=== PATIENT | male | born 1985 | race Caucasian/White ===

== ENCOUNTER 2017-08-30 22:10 | Inpatient (IN) | payer SELFPAY ==
[~2017-08-30] VITALS: Ht 180.3 cm; Wt 97.3 kg
[2017-08-30] MEDS ORDERED: LORazepam 2 MG/ML VIAL IM ONE (22:15)
[2017-08-30] MEDS ORDERED: HALOPERIDOL LACTATE 5 MG/ML VIAL IM ONE (22:15)
[2017-08-30] MEDS ORDERED: DiphenhydrAMINE HCL 50 MG/ML VIAL IM ONE (22:15)
[2017-08-30] MEDS: ZIPRASIDONE MESYLATE 20 MG/VIAL IM ONE ×2 (23:00→23:30)
[2017-08-31] MEDS ORDERED: ZOLPIDEM TARTRATE 10 MG TABLET PO PRN
[2017-08-31 00:02] LABS: BASOPHILS % (AUTO) 0.4 % (0.0-2.0); EOSINOPHILS % (AUTO) 1.1 % (1.0-6.0); HEMATOCRIT 41.6 % (41-53); HEMOGLOBIN 14.4 g/dL (13.5-17.5); LYMPHOCYTES # (AUTO) 1.3 K/uL (1.0-4.8); LYMPHOCYTES % (AUTO) 13.7 % (22.0-44.0); MEAN CORPUSCULAR HEMOGLOBIN 31.8 pg (26.0-34.0); MEAN CORPUSCULAR HGB CONC 34.6 G/dL (31.0-37.0); MEAN CORPUSCULAR VOLUME 92 fL (80-100); MONOCYTES # (AUTO) 0.7 K/uL (0.1-1.0); NEUTROPHILS # (AUTO) 7.6 K/uL (1.8-7.7); NEUTROPHILS % (AUTO) 77.8 % (40.0-70.0); PLATELET COUNT (AUTO) 218 K/uL (150-450); RED BLOOD CELL COUNT(AUTO) 4.54 MIL/uL (4.50-5.90); RED CELL DISTRIBUTION WIDTH 14.2 % (11.5-14.5); WHITE BLOOD COUNT (AUTO) 9.7 K/uL (4.5-11.0)
[2017-08-31 00:10] LABS: ANION GAP 16 mmol/L (8-16); CALCIUM, TOTAL 8.6 mg/dL (8.8-10.5); CARBON DIOXIDE 20 mmol/L (22-29); CHLORIDE 102 mmol/L (98-107); CREATININE 1.05 mg/dL (0.60-1.30); GLOMERULAR FILTR. RATE CALC > 60 mL/min (>60); POTASSIUM 3.7 mmol/L (3.5-5.1); SODIUM SERUM 138 mmol/L (136-145); UREA NITROGEN, BLOOD 14 mg/dL (7-18)
[2017-08-31 00:16] LABS: ALANINE AMINOTRANSFERASE 37 U/L (12-78); ASPARTATE AMINOTRANSFERASE 31 U/L (15-37); BILIRUBIN,TOTAL 0.3 mg/dL (0.1-1.0); TOTAL PROTEIN, SERUM 6.9 g/dL (6.4-8.2)
[2017-08-31 03:26] VITALS: BP 117/64
[2017-08-31] MEDS ORDERED: INFLUENZA VIRUS VACCINE QVS 2017-18 (3YR+)/PF 60 MCG/0.5 ML SYRINGE IM ONE (03:45)
[2017-08-31 08:04] LABS: CHOL/HDL RATIO 2.8 (4.2-7.3)
[2017-08-31 09:10] VITALS: BP 108/61
[2017-08-31] MEDS: OLANZapine 5 MG RAPDIS TABLET PO PRN (09:22)
[2017-08-31 16:00] VITALS: BP 130/83
[2017-08-31] MEDS: RisperiDONE 1 MG TABLET PO SCH (20:12)
[2017-09-01 01:48] VITALS: BP 128/82
[2017-09-01 08:10] VITALS: BP 130/78
[2017-09-01] MEDS: OLANZapine 5 MG RAPDIS TABLET PO PRN ×2 (09:15→16:56)
[2017-09-01 16:00] VITALS: BP 138/77
[2017-09-01] MEDS: LORazepam 2 MG TABLET PO PRN (16:56)
[2017-09-01] MEDS: RisperiDONE 1 MG TABLET PO SCH (20:50)
[2017-09-02 02:42] VITALS: BP 132/78
[2017-09-02 08:23] VITALS: BP 121/61
[2017-09-02] MEDS: LORazepam 2 MG TABLET PO PRN ×2 (09:45→16:50)
[2017-09-02] MEDS: OLANZapine 5 MG RAPDIS TABLET PO PRN ×2 (09:46→16:50)
[2017-09-02 16:12] VITALS: BP 129/68
[2017-09-02] MEDS ORDERED: MELATONIN 3 MG TABLET PO PRN (18:45)
[2017-09-02] MEDS ORDERED: MELATONIN 3 MG TABLET PO SCH ×2 (21:00)
[2017-09-02] MEDS: RisperiDONE 1 MG TABLET PO SCH (21:09)
[2017-09-03 00:22] VITALS: BP 111/67
[2017-09-03] MEDS: OLANZapine 5 MG RAPDIS TABLET PO PRN (08:18)
[2017-09-03] MEDS: LORazepam 2 MG TABLET PO PRN (08:18)
[2017-09-03 09:43] VITALS: BP 122/75
[2017-09-03] MEDS: NICOTINE 21 MG/24 HOUR PATCH TD SCH (14:05)
[2017-09-03 16:32] VITALS: BP 118/74
[2017-09-03] MEDS: RisperiDONE 1 MG TABLET PO SCH (20:33)
[2017-09-03] MEDS ORDERED: MELATONIN 3 MG TABLET PO SCH (21:00)
[2017-09-04 05:15] VITALS: BP 120/70
[2017-09-04 08:10] VITALS: BP 142/73
[2017-09-04] MEDS ORDERED: ACETAMINOPHEN 325 MG TABLET PO PRN ×2 (08:15→13:30)
[2017-09-04] MEDS: LORazepam 2 MG TABLET PO PRN (08:29)
[2017-09-04] MEDS: NICOTINE 21 MG/24 HOUR PATCH TD SCH (08:29)
[2017-09-04 09:28] LABS: APPEARANCE,URINE CLEAR (CLEAR); GLUCOSE, URINE (UA) NEGATIVE (NEGATIVE); KETONES,URINE NEGATIVE (NEGATIVE); LEUKOCYTE ESTERASE ,URINE NEGATIVE (NEGATIVE); OCCULT BLOOD,URINE NEGATIVE (NEGATIVE); PH,URINE 6.5 (5.0-8.0); PROTEIN,URINE NEGATIVE (NEGATIVE)
[2017-09-04 09:33] LABS: ADD UA MICROSCOPIC NO
[2017-09-04] MEDS: OLANZapine 5 MG RAPDIS TABLET PO PRN (10:33)
[2017-09-04] MEDS ORDERED: LOPERAMIDE HCL 2 MG CAPSULE PO PRN (13:30)
[2017-09-04] MEDS ORDERED: HydrOXYzine PAMOATE 50 MG CAPSULE PO PRN (13:30)
[2017-09-04] MEDS ORDERED: MAGNESIUM HYDROXIDE SUSPENSION 30 ML UDCUP PO PRN (13:30)
[2017-09-04] MEDS ORDERED: PROMETHAZINE HCL 25 MG TABLET PO PRN (13:30)
[2017-09-04] MEDS ORDERED: TUBERCULIN, PURIFIED PROTEIN DERIVATIVE 5 TU/0.1 ML SYG ID ONE (13:30)
[2017-09-04] MEDS ORDERED: MAG HYDROX/AL HYDROX/SIMETH ES 30 ML SUSPENSION UDCUP PO PRN (13:30)
[2017-09-04] MEDS ORDERED: GuaiFENesin/D-METHORPHAN [SUGAR-FREE] 200-20MG/10 ML SYRUP UDCUP PO PRN (13:30)
[2017-09-04 16:00] VITALS: BP 130/73
[2017-09-04] MEDS ORDERED: MELA3TAB66 PO (16:42)
[2017-09-04] MEDS ORDERED: RISP1 PO (16:42)
[2017-09-04] MEDS ORDERED: THIAMINE HCL 100 MG TABLET PO SCH (17:00)
[2017-09-05] MEDS ORDERED: FOLIC ACID 1 MG TABLET PO SCH (09:00)
[2017-09-05] MEDS ORDERED: MULTIVITAMINS WITH MINERALS, THERAPEUTIC TABLET PO SCH (09:00)
== END 2017-09-04 21:37 | disposition home or self-care (01) | DRG 885 ==
LOC: EMS 22:11 → B3A 23:21
PROVIDERS: ADMIT Psychiatry & Neurology Psychiatry; ATTEND Psychiatry & Neurology Psychiatry
DX: F25.0 Schizoaffective disorder, bipolar type (principal); R45.851 Suicidal ideations; Z78.1 Physical restraint status; Y90.9 Presence of alcohol in blood, level not specified; I10 Essential (primary) hypertension; G47.00 Insomnia, unspecified; F10.10 Alcohol abuse, uncomplicated; R00.0 Tachycardia, unspecified; Z28.21 Immunization not carried out because of patient refusal; Z56.0 Unemployment, unspecified; Z91.19 Patient's noncompliance with other medical treatment and regimen; Z71.41 Alcohol abuse counseling and surveillance of alcoholic
CPT/HCPCS: 80307; 90471; 96372; 99291; G0480; J1200; J1630; J2060; J3486

== ENCOUNTER 2020-07-29 14:16 | Inpatient (IN) | payer OTHER ==
[~2020-07-29] VITALS: Ht 180.3 cm; Wt 128.3 kg
[~2020-07-29 14:16] MED LIST: MELA3TAB82 PO; RISP1TAB27 PO
[2020-07-29] MEDS ORDERED: SODIUM CHLORIDE 0.9% 1,000 ML IV ONE ×2 (16:15→18:00)
[2020-07-29 16:37] LABS: EOSINOPHILS % (AUTO) 1.8 % (1.0-6.0); HEMATOCRIT 41.7 % (41-53); HEMOGLOBIN 14.4 g/dL (13.5-17.5); LYMPHOCYTES # (AUTO) 1.9 K/uL (1.0-4.8); LYMPHOCYTES % (AUTO) 24.2 % (22.0-44.0); MEAN CORPUSCULAR HEMOGLOBIN 30.8 pg (26.0-34.0); MEAN CORPUSCULAR HGB CONC 34.6 G/dL (31.0-37.0); MEAN CORPUSCULAR VOLUME 89 fL (80-100); MONOCYTES # (AUTO) 0.6 K/uL (0.1-1.0); MONOCYTES % (AUTO) 7.3 % (2.0-9.0); NEUTROPHILS # (AUTO) 5.1 K/uL (1.8-7.7); NEUTROPHILS % (AUTO) 65.7 % (40.0-70.0); PLATELET COUNT (AUTO) 240 K/uL (150-450); RED BLOOD CELL COUNT(AUTO) 4.68 MIL/uL (4.50-5.90); RED CELL DISTRIBUTION WIDTH 14.3 % (11.5-14.5)
[2020-07-29 16:46] LABS: ANION GAP 13 mmol/L (8-16); CARBON DIOXIDE 23 mmol/L (22-29); CHLORIDE 105 mmol/L (98-107); CREATININE 1.14 mg/dL (0.60-1.30); GLOMERULAR FILTR. RATE CALC > 60 mL/min (>60); GLUCOSE,RANDOM 107 mg/dL (70-110); POTASSIUM 3.7 mmol/L (3.5-5.1); SODIUM SERUM 141 mmol/L (136-145); UREA NITROGEN, BLOOD 9 mg/dL (7-18)
[2020-07-29 16:52] LABS: ALANINE AMINOTRANSFERASE 45 U/L (12-78); ALBUMIN 3.9 g/dL (3.4-5.0); ALKALINE PHOSPHATASE 44 U/L (46-116); ASPARTATE AMINOTRANSFERASE 19 U/L (15-37); BILIRUBIN,TOTAL 0.2 mg/dL (0.1-1.0); TOTAL PROTEIN, SERUM 6.7 g/dL (6.4-8.2)
[2020-07-29 16:52] LABS: AMPHET/METH SCREEN,URINE NEGATIVE (NEGATIVE); BARBITURATE SCREEN, URINE NEGATIVE (NEGATIVE); BENZODIAZEPINES SCREEN,URINE NEGATIVE (NEGATIVE); CANNABINOID SCREEN,URINE NEGATIVE (NEGATIVE); COCAINE SCREEN,URINE NEGATIVE (NEGATIVE); METHADONE SCREEN, URINE NEGATIVE (NEGATIVE); OPIATE SCREEN,URINE NEGATIVE (NEGATIVE)
[2020-07-29 16:57] LABS: PHENCYCLIDINE SCREEN,URINE NEGATIVE (NEGATIVE)
[2020-07-29 16:58] LABS: ACETAMINOPHEN < 2 mcg/mL (10-30)
[2020-07-29 17:17] LABS: SALICYLATE 12.7 mg/dL (2.8-20.0)
[2020-07-29 17:37] LABS: COVID AG,FIA SOURCE NASOPHARYNGEAL
[2020-07-29 19:22] LABS: ANION GAP 8 mmol/L (8-16); CARBON DIOXIDE 25 mmol/L (22-29); CHLORIDE 111 mmol/L (98-107); CREATININE 0.97 mg/dL (0.60-1.30); GLOMERULAR FILTR. RATE CALC > 60 mL/min (>60); GLUCOSE,RANDOM 93 mg/dL (70-110); POTASSIUM 3.7 mmol/L (3.5-5.1); SODIUM SERUM 144 mmol/L (136-145); UREA NITROGEN, BLOOD 9 mg/dL (7-18)
[2020-07-29 19:39] LABS: SALICYLATE 16.2 mg/dL (2.8-20.0)
[2020-07-29] MEDS ORDERED: SODIUM CHLORIDE 0.45% 1,000 ML IV ONE (20:00)
[2020-07-29] MEDS ORDERED: ONDANSETRON HCL 4 MG/2 ML VIAL IVP PRN (20:00)
[2020-07-29] MEDS: PANTOPRAZOLE SODIUM 40 MG/VIAL IVP SCH (20:14)
[2020-07-29] MEDS: DOCUSATE SODIUM 100 MG CAPSULE PO SCH (21:00)
[2020-07-29 21:49] VITALS: BP 120/77
[2020-07-30 03:09] VITALS: BP 114/65
[2020-07-30 08:01] VITALS: BP 125/79
[2020-07-30] MEDS: PANTOPRAZOLE SODIUM 40 MG/VIAL IVP SCH (09:00)
[2020-07-30] MEDS: DOCUSATE SODIUM 100 MG CAPSULE PO SCH (09:00)
[2020-07-30 09:40] LABS: SALICYLATE 9.4 mg/dL (2.8-20.0)
[2020-07-30 09:42] LABS: ANION GAP 8 mmol/L (8-16); CALCIUM, TOTAL 8.6 mg/dL (8.8-10.5); CARBON DIOXIDE 26 mmol/L (22-29); CHLORIDE 106 mmol/L (98-107); CREATININE 0.93 mg/dL (0.60-1.30); GLOMERULAR FILTR. RATE CALC > 60 mL/min (>60); GLUCOSE,RANDOM 97 mg/dL (70-110); POTASSIUM 3.8 mmol/L (3.5-5.1); SODIUM SERUM 140 mmol/L (136-145); UREA NITROGEN, BLOOD 8 mg/dL (7-18)
[2020-07-30 12:00] VITALS: BP 125/75
== END 2020-07-30 15:30 | disposition short-term general hospital (02) | DRG 918 ==
LOC: EMS 14:17 → 5S 19:54
PROVIDERS: ADMIT Internal Medicine; ATTEND Internal Medicine
DX: T43.592A Poisoning by other antipsychotics and neuroleptics, intentional self-harm, initial encounter (principal); F33.2 Major depressive disorder, recurrent severe without psychotic features; F20.9 Schizophrenia, unspecified; E66.01 Morbid (severe) obesity due to excess calories; Z68.39 Body mass index [BMI] 39.0-39.9, adult; Z83.3 Family history of diabetes mellitus; Z82.49 Family history of ischemic heart disease and other diseases of the circulatory system; F17.200 Nicotine dependence, unspecified, uncomplicated; Y92.89 Other specified places as the place of occurrence of the external cause; Z20.828 Contact with and (suspected) exposure to other viral communicable diseases
CPT/HCPCS: 83735; 87426; 93005; 99291; C9113; G0480; G0481; J7030